=== PATIENT | male | born 1995 | race Caucasian/White ===

== ENCOUNTER → 2023-03-19 07:43 | Outpatient (CLI) | payer OTHER, SELFPAY ==
--- NOTE | 2023-03-19 | DI.MRI.S_ITS ---
PROCEDURE: MR KNEE LT WO CON INDICATIONS: INJURY TO LEFT KNEE / LEFT KNEE PAIN TECHNIQUE: Noncontrast sagittal PD fast spin echo and T2 fast spin echo with fat saturation, sagittal 3-D FLASH with fat saturation; coronal T1 spin echo and PD fast spin echo with fat saturation, and axial PD fast spin echo with fat saturation through the knee. COMPARISON: None. FINDINGS: Image quality: Excellent. Menisci: Subtle signal abnormality involving posterior horn of medial meniscus extending to inferior articulating surface is seen suggestive of subtle oblique tear in this area. There is also suggestion of oblique tear involving anterior horn of lateral meniscus extending to superior articulating surface. The The meniscal root ligaments appear intact. Cruciate ligaments: The anterior cruciate ligament is thickened with intrasubstance T2 hyperintense signal. The posterior cruciate ligament is intact. Medial structures: The medial collateral ligament appears mildly thickened. The posterior oblique ligament, semimembranosus tendon insertions, oblique popliteal ligament, and meniscocapsular junction appear intact. Visualized portions of the pes anserinus tendons appear normal. No abnormal bursal fluid. Lateral structures: The lateral collateral ligament, long and short heads of the biceps femoris tendon appear mildly thickened. The popliteus tendon appears normal; the popliteofibular ligament appears intact. Iliotibial band appears normal. Anterior structures: The quadriceps and patellar tendons appear intact. Moderate grade partial-thickness tear involving medial patellofemoral ligament at its patellar insertion is seen. Patellar alignment is normal. No femoral trochlear dysplasia or ventral trochlear prominence. No edema in the infrapatellar fat pad. Bones and cartilage: Bony contusion involving medial aspect of patella and lateral periphery of lateral femoral condyle without discrete fracture line. No other area of marrow signal abnormality. The cartilage of the medial and lateral femorotibial compartments, as well as the patellofemoral compartment, appears normal in thickness. Joint space: There is moderate knee joint fluid. No Gonzalez's cyst. Normal appearing synovial plicae are incidentally noted. IMPRESSION: 1. Finding is consistent with reduced lateral patellar dislocation with moderate grade partial-thickness tear involving medial patellofemoral ligament at its medial patellar insertion and bony contusion involving medial aspect of patella and lateral periphery of lateral femoral condyle. Moderate joint effusion, no gross loose bodies. 2. Low-grade intrasubstance partial-thickness tear involving distal anterior cruciate ligament. No ACL rupture. Low-grade MCL and LCL sprain. Mild distal biceps femorals tendinosis. 3. Suggestion of subtle oblique tear involving posterior horn of medial meniscus extending to inferior articulating surface and subtle oblique tear involving anterior horn of lateral meniscus extending to superior articulating surface. Dictated by: Arturo Hatch M.D. on 03/19/2023 at 16:03 Approved by: Arturo Hatch M.D. on 03/19/2023 at 16:13
== END ==
PROVIDERS: Referring Provider Physician Assistant; Visit Provider Physician Assistant
DX: S80.912A Unspecified superficial injury of left knee, initial encounter (principal); M25.562 Pain in left knee; S76.112A Strain of left quadriceps muscle, fascia and tendon, initial encounter; M25.462 Effusion, left knee; S83.512A Sprain of anterior cruciate ligament of left knee, initial encounter; S83.412A Sprain of medial collateral ligament of left knee, initial encounter; S83.422A Sprain of lateral collateral ligament of left knee, initial encounter
CPT/HCPCS: 73721